=== PATIENT | male | born 1965 | race Two or more races ===

== ENCOUNTER 2025-03-11 10:05 | Emergency (ER) | payer OTHER ==
[~2025-03-11] VITALS: Ht 175.3 cm; Wt 90.7 kg
[2025-03-11] MEDS ORDERED: [UNRECOGNIZED DRUG - OTHER] (10:45)
[2025-03-11] MEDS ORDERED: DILANTIN100 MG PO (10:45)
[2025-03-11] MEDS ORDERED: 0.9 % SODIUM CHLORIDE 1,000 ML IV ONE (12:30)
[2025-03-11] MEDS ORDERED: DEXAMETHASONE SODIUM PHOSPHATE 4 MG/ML VIAL IV ONE (12:30)
[2025-03-11 14:25] LABS: EOS # 0.09 (0.04-0.54); EOS % 1.2 % (0.7-7.0); LYMPH # 2.18 (1.18-3.74); LYMPH % 28.4 % (19.3-53.1); MEAN PLATELET VOLUME 10.40 fl (9.4-12.4); MONO # 0.62 (0.24-0.82); MONO % 8.1 % (4.7-12.5); NEUT # 4.61 (1.56-6.13); NEUT % 60.1 % (34.0-71.1); RED CELL DISTRIBUTION WIDTH 17.3 % (11.6-14.4)
[2025-03-11 14:45] LABS: INR 1.02
[2025-03-11 14:51] LABS: ALT/SGPT 31.0 U/L (12-78); AST/SGOT 46.0 U/L (15-37); BASO % 2.1 % (0.1-1.2); BILIRUBIN TOTAL 0.45 mg/dL (0.3-1.2); BUN CREA RATIO 13.0 (7.0-25.0); CREATININE SERUM 0.97 mg/dL (0.70-1.30); GFR 78.95; GLOBULINA 4.3 G/DL (2.4-3.5); GLUCOSE FASTING 93.0 mg/dL (65-100); OSMOLALITY SERUM 279.0 MOSM/KG (275-295)
[2025-03-11 14:53] LABS: PHOSPHOKINASE CREATININE 827.0 U/L (39-308)
== END 2025-03-11 17:38 | disposition home or self-care (01) ==
LOC: ER 10:05
DX: T67.01XA Heatstroke and sunstroke, initial encounter (principal); Y92.89 Other specified places as the place of occurrence of the external cause; I10 Essential (primary) hypertension; G40.802 Other epilepsy, not intractable, without status epilepticus
CPT/HCPCS: 36415; 70450; 93005; 96365; 96366; 99283; J1100; J7030